=== PATIENT | female | born 1980 | race African-American/Black ===

== ENCOUNTER 2019-01-04 20:43 | Emergency (ER) | payer SELFPAY ==
[2019-01-04 21:48] LABS: Urine Blood TRACE (NEG); Urine Glucose NEGATIVE (NEG); Urine Protein NEGATIVE (NEG); Urine Specific Gravity 1.025 (1.005-1.030)
[2019-01-04 21:54] LABS: Absolute Lymphocytes (CBC) 2.7 K/uL (0.7-4.9); Absolute Monocytes 0.7 K/uL (0.1-1.3); Basophils % 0.7 % (0-1.3); Eosinophils % 7.4 % (0-4.4); Hematocrit 41.4 % (36.0-45.0); Lymphocytes % 29.3 % (15.3-44.8); MPV 7.4 fL (7.6-11.3); Monocytes % 7.6 % (3.3-12.3); RBC Red Blood Cell Count 4.93 M/uL (3.86-4.86)
[2019-01-04 22:11] LABS: ALT/SGPT 17 U/L (12-78); AST/SGOT 16 U/L (15-37); Albumin 3.6 g/dL (3.4-5.0); Alkaline Phosphatase 81 U/L (45-117); BUN Blood Urea Nitrogen 13 mg/dL (7-18); Bicarbonate 24 mmol/L (21-32); Bilirubin Direct < 0.1 mg/dL (0-0.2); Bilirubin Total 0.2 mg/dL (0.2-1.0); Glucose Level 89 mg/dL (74-106); Lipase 171 U/L (73-393); Potassium 3.9 mmol/L (3.5-5.1); Protein, Total 7.6 g/dL (6.4-8.2); Sodium Level 141 mmol/L (136-145)
[2019-01-04] MEDS ORDERED: NA CHLORIDE 0.9% 1,000 ML ONE (22:37)
[2019-01-04] MEDS ORDERED: ONDANSETRON 4 MG/2 ML VIAL ONE (22:37)
--- NOTE | 2019-01-04 22:58 | EDPHYS ---
Physician Documentation [facility] Name: Joshua Palacio Age: 38 yrs Sex: Female : 1980 Arrival Date: 01/04/2019 Time: 20:44 Bed 8 Private MD: ED Physician Juan Ac HPI: 01/04 22:54 This 38 yrs old Black Female presents to ER via Ambulatory with complaints of gs Nausea/Vomiting. 22:54 The patient presents to the emergency department with nausea, vomiting, diarrhea. gs Onset: The symptoms/episode began/occurred yesterday. Possible causes: unknown. The symptoms are alleviated by OTC meds. Associated signs and symptoms: Pertinent positives: diarrhea. Severity of symptoms: At their worst the symptoms were moderate in the emergency department the symptoms have improved moderately. The patient has experienced similar episodes in the past, a few times. The patient has not recently seen a physician. 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 - Social history:: Smoking status: Patient/guardian denies using tobacco. - Ebola Screening: : No symptoms or risks identified at this time. ROS: 22:54 All other systems are negative. gs Exam: 22:54 Head/Face: Normocephalic, atraumatic. Eyes: Pupils equal round and reactive to light, gs extra-ocular motions intact. Lids and lashes normal. Conjunctiva and sclera are non-icteric and not injected. Cornea within normal limits. Periorbital areas with no swelling, redness, or edema. ENT: Nares patent. No nasal discharge, no septal abnormalities noted. Tympanic membranes are normal and external auditory canals are clear. Oropharynx with no redness, swelling, or masses, exudates, or evidence of obstruction, uvula midline. Mucous membranes moist. Neck: Trachea midline, no thyromegaly or masses palpated, and no cervical lymphadenopathy. Supple, full range of motion without nuchal rigidity, or vertebral point tenderness. No Meningismus. Chest/axilla: Normal chest wall appearance and motion. Nontender with no deformity. No lesions are appreciated. Cardiovascular: Regular rate and rhythm with a normal S1 and S2. No gallops, murmurs, or rubs. Normal PMI, no JVD. No pulse deficits. Respiratory: Lungs have equal breath sounds bilaterally, clear to auscultation and percussion. No rales, rhonchi or wheezes noted. No increased work of breathing, no retractions or nasal flaring. Abdomen/GI: Soft, non-tender, with normal bowel sounds. No distension or tympany. No guarding or rebound. No evidence of tenderness throughout. Back: No spinal tenderness. No costovertebral tenderness. Full range of motion. Skin: Warm, dry with normal turgor. Normal color with no rashes, no lesions, and no evidence of cellulitis. MS/ Extremity: Pulses equal, no cyanosis. Neurovascular intact. Full, normal range of motion. Neuro: Awake and alert, GCS 15, oriented to person, place, time, and situation. Cranial nerves II-XII grossly intact. Motor strength 5/5 in all extremities. Sensory grossly intact. Cerebellar exam normal. Normal gait. 22:54 Constitutional: The patient appears alert, awake. Vital Signs: 21:05 BP 122 / 86; Pulse 97; Resp 16; Temp 98.2; Pulse Ox 98% on R/A; Weight 68.04 kg (R); ak1 Height 5 ft. 6 in. (167.64 cm) (R); Pain 8/10; 23:30 BP 121 / 96; Pulse 90; Resp 18; Temp 98; Pulse Ox 100% on R/A; Pain 0/10; mg2 21:05 Body Mass Index 24.21 (68.04 kg, 167.64 cm) ak1 MDM: 22:10 Patient medically screened. gs 22:54 Differential diagnosis: gastritis, viral gastroenteritis, gastroenteritis. Data gs reviewed: vital signs, nurses notes, lab test result(s). Counseling: I had a detailed discussion with the patient and/or guardian regarding: the historical points, exam findings, and any diagnostic results supporting the discharge/admit diagnosis, lab results, the need for outpatient follow up. Response to treatment: the patient's symptoms have markedly improved after treatment, the patient's symptoms have resolved after treatment, the patient's condition has returned to base line, and as a result, I will discharge patient. 01/04 21:20 Order name: Basic Metabolic Panel; Complete Time: 22:28 mg2 01/04 21:20 Order name: CBC with Diff; Complete Time: 22:12 mg2 01/04 21:20 Order name: Creatinine for Radiology; Complete Time: 22:12 mg2 01/04 21:20 Order name: Hepatic Function; Complete Time: 22:28 mg2 01/04 21:20 Order name: Lipase; Complete Time: 22:28 mg2 01/04 21:32 Order name: Urine Dipstick--Ancillary (enter results); Complete Time: 21:50 ar5 01/04 21:20 Order name: IV Saline Lock; Complete Time: 21:27 mg2 01/04 21:20 Order name: Labs collected and sent; Complete Time: : mg2 01/04 21:32 Order name: Urine --Ancillary (enter results); Complete Time: 21:50 ar5 Administered Medications: 22:35 Drug: NS 0.9% 1000 ml Route: IV; Rate: 1 bolus; Site: right antecubital; mg2 23:29 Follow up: Response: No adverse reaction; IV Status: Completed infusion; IV Intake: mg2 1000ml 22:35 Drug: Zofran 4 mg Route: IVP; Site: right antecubital; mg2 22:57 Follow up: Response: No adverse reaction; Marked relief of symptoms mg2 Disposition: 01/04/19 22:57 Discharged to Home. Impression: Vomiting, Diarrhea, unspecified. - Condition is Stable. - Discharge Instructions: Diarrhea, Adult, Nausea and Vomiting, Adult. - Prescriptions for Zofran 4 mg Oral Tablet - take 1 tablet by ORAL route every 12 hours As needed; 10 tablet. - Medication Reconciliation Form, Thank You Letter, Antibiotic Education, Prescription Opioid Use, Work release form form. - Follow up: Private Physician; When: 2 - 3 days; Reason: Re-evaluation by your physician. Signatures: Dispatcher [employer] Mirian Selby RN RN ak1 Juan Ac MD MD gs Bob Cortez RN RN mg2 Corrections: (The following items were deleted from the chart) 23:31 22:57 01/04/2019 22:57 Discharged to Home. Impression: Vomiting; Diarrhea, unspecified. mg2 Condition is Stable. Forms are Medication Reconciliation Form, Thank You Letter, Antibiotic Education, Prescription Opioid Use. Follow up: Private Physician; When: 2 - 3 days; Reason: Re-evaluation by your physician. gs
--- NOTE | 2019-01-04 22:58 | ER ---
Nurse's Notes [facility] Name: Joshua Palacio Age: 38 yrs Sex: Female : 1980 Arrival Date: 01/04/2019 Time: 20:44 Bed 8 Private MD: Diagnosis: Vomiting;Diarrhea, unspecified Presentation: 01/04 21:03 Presenting complaint: Patient states: missed work due to N/V/D since this morning. pt ak1 thinks it could be food from [employer] last night. pt starting to "feel better" tonight. Transition of care: patient was not received from another setting of care. Onset of symptoms is unknown. Risk Assessment: Do you want to hurt yourself or someone else? Patient reports no desire to harm self or others. Initial Sepsis Screen: Does the patient meet any 2 criteria? No. Patient's initial sepsis screen is negative. Does the patient have a suspected source of infection? No. Patient's initial sepsis screen is negative. Care prior to arrival: None. 21:03 Method Of Arrival: Ambulatory ak1 21:03 Acuity: RENEE 3 ak1 Triage Assessment: 21:05 General: Appears in no apparent distress. Behavior is calm, cooperative. 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 - Social history:: Smoking status: Patient/guardian denies using tobacco. - Ebola Screening: : No symptoms or risks identified at this time. Screenin:35 Abuse screen: Denies threats or abuse. Denies injuries from another. Nutritional mg2 screening: No deficits noted. Tuberculosis screening: No symptoms or risk factors identified. Fall Risk IV access (20 points). Assessment: 21:35 General: Appears in no apparent distress. comfortable, Behavior is calm, cooperative. mg2 Pain: Complains of pain in abdomen Pain does not radiate. Pain currently is 4 out of 10 on a pain scale. Quality of pain is described as crampy, Pain began gradually, today Is intermittent. Neuro: Level of Consciousness is awake, alert, obeys commands, Oriented to person, place, time, situation. Cardiovascular: Capillary refill < 3 seconds Patient's skin is warm and dry. Respiratory: Airway is patent Respiratory effort is even, unlabored, Respiratory pattern is regular, symmetrical. GI: Bowel sounds present X 4 quads. Abd is soft and non tender. : Urine is clear. EENT: No signs and/or symptoms were reported regarding the EENT system. Derm: Skin is intact, is healthy with good turgor, Skin is pink, warm \\T\\ dry. normal. Musculoskeletal: Circulation, motion, and sensation intact. Capillary refill < 3 seconds. 22:58 Reassessment: patient up for discharge after the iv fluid is completed. mg2 23:30 Reassessment: Patient states feeling better. Patient states symptoms have improved. mg2 Vital Signs: 21:05 BP 122 / 86; Pulse 97; Resp 16; Temp 98.2; Pulse Ox 98% on R/A; Weight 68.04 kg (R); ak1 Height 5 ft. 6 in. (167.64 cm) (R); Pain 8/10; 23:30 BP 121 / 96; Pulse 90; Resp 18; Temp 98; Pulse Ox 100% on R/A; Pain 0/10; mg2 21:05 Body Mass Index 24.21 (68.04 kg, 167.64 cm) ak1 ED Course: 20:44 Patient arrived in ED. am2 21:05 Triage completed. ak1 21:05 Arm band placed on Patient placed in waiting room, Patient notified of wait time. ak1 21:15 Bob Cortez, RN is Primary Nurse. mg2 21:35 No provider procedures requiring assistance completed. Inserted saline lock: 20 gauge mg2 in right antecubital area, using aseptic technique. Blood collected. 21:37 Patient has correct armband on for positive identification. Pulse ox on. NIBP on. Door mg2 closed. 21:51 Juan Ac MD is Attending Physician. gs 23:30 IV discontinued, intact, bleeding controlled, No redness/swelling at site. Pressure mg2 dressing applied. Administered Medications: 22:35 Drug: NS 0.9% 1000 ml Route: IV; Rate: 1 bolus; Site: right antecubital; mg2 23:29 Follow up: Response: No adverse reaction; IV Status: Completed infusion; IV Intake: mg2 1000ml 22:35 Drug: Zofran 4 mg Route: IVP; Site: right antecubital; mg2 22:57 Follow up: Response: No adverse reaction; Marked relief of symptoms mg2 Intake: 23:29 IV: 1000ml; Total: 1000ml. mg2 Outcome: 22:57 Discharge ordered by . karishma 23:31 Discharged to home ambulatory. mg2 23:31 Condition: stable 23:31 Discharge instructions given to patient, Instructed on discharge instructions, follow up and referral plans. medication usage, Demonstrated understanding of instructions, follow-up care, medications, Prescriptions given X 1. 23:31 Patient left the ED. mg2 Signatures: Mirian Ulrich RN RN ak1 Tiffani Franoc am2 Juan Ac MD MD gs Gardose, Michele RN RN mg2
== END 2019-01-04 23:31 | disposition home or self-care (01) ==
LOC: ER 20:43
DX: R11.2 Nausea with vomiting, unspecified (principal); R19.7 Diarrhea, unspecified
CPT/HCPCS: 36415; 80048; 80076; 81003; 81025; 83690; 85025; 96361; 96374; 99284; J2405; J7030